=== PATIENT | female | born 1960 | race Caucasian/White ===

== ENCOUNTER 2020-03-26 15:24 | Emergency (ER) | payer OTHER ==
[~2020-03-26] VITALS: Ht 170.2 cm; Wt 66.2 kg
[~2020-03-26 15:24] MED LIST: AMOXICILLIN 25250 M1 PO; CIPROFLOXACIN500 M1 PO; LINZESS145 MCG PO; PROCTOZONE-HC30 GM RC; [UNRECOGNIZED DRUG - OTHER]
[2020-03-26 16:41] VITALS: BP 123/86
== END 2020-03-26 16:43 | disposition home or self-care (01) ==
LOC: ER 15:24
DX: S01.01XA Laceration without foreign body of scalp, initial encounter (principal); F17.210 Nicotine dependence, cigarettes, uncomplicated; Z90.89 Acquired absence of other organs; Z79.899 Other long term (current) drug therapy; W01.198A Fall on same level from slipping, tripping and stumbling with subsequent striking against other object, initial encounter; Y93.89 Activity, other specified; Y92.89 Other specified places as the place of occurrence of the external cause; Y99.8 Other external cause status